=== PATIENT | female | born 2005 | race African-American/Black ===

== ENCOUNTER 2024-07-13 23:57 | Emergency (ER) | payer OTHER ==
[~2024-07-13] VITALS: Ht 167.6 cm; Wt 70.3 kg
[2024-07-14] MEDS ORDERED: FAMOTIDINE/PF 20 MG/2 ML VIAL ONE (00:11)
[2024-07-14] MEDS ORDERED: FAMOTIDINE/PF 20 MG/2 ML VIAL IV PUSH STA (00:33)
[2024-07-14] MEDS ORDERED: PROMETHAZINE HCL 50 MG/ML AMPUL IM STA (00:33)
[2024-07-14] MEDS ORDERED: PROMETHAZINE HCL 50 MG/ML AMPUL IM ONE (00:37)
[2024-07-14] MEDS ORDERED: 0.9 % SODIUM CHLORIDE 1,000 ML IV ONE (00:45)
[2024-07-14 00:53] LABS: HEMATOCRIT 33.5 % (36.0-45.00); HEMOGLOBIN 11.1 g/dL (12.0-15.00); MEAN CELL VOLUME 80.9 fL (80.00-100.00); MEAN CORPUSCULAR HEMOGLOBIN 26.8 pg (27.00-32.0); MEAN CORPUSCULAR HGB CONC 33.1 g/dl (32.0-36.0); PLATELET COUNT 193 K/uL (150-450); RED BLOOD COUNT 4.14 M/uL (4.00-6.00); RED CELL DISTRIBUTION WIDTH 14.2 % (11.5-14.5)
[2024-07-14 01:14] LABS: CALCIUM 9.3 mg/dL (8.5-10.1); GFR 70.69; POTASSIUM 3.8 mEq/L (3.5-5.1)
[2024-07-14 04:41] LABS: COCAINE NEGATIVE (NEGATIVE); METHADONE NEGATIVE (NEGATIVE); OPIATES NEGATIVE (NEGATIVE); THC ( Cannabinoids) POSITIVE (NEGATIVE)
== END 2024-07-14 06:05 ==
LOC: ER 23:57
PROVIDERS: General Practice
DX: F10.929 Alcohol use, unspecified with intoxication, unspecified (principal)